=== PATIENT | male | born 1990 | race Caucasian/White ===

== ENCOUNTER 2024-09-21 14:02 | Emergency (ER) | payer OTHER ==
[~2024-09-21] VITALS: Ht 175.3 cm; Wt 65.8 kg
[2024-09-21 14:33] VITALS: BP 125/71
== END 2024-09-21 19:10 | disposition home or self-care (01) ==
LOC: ER 14:02
DX: S61.215A Laceration without foreign body of left ring finger without damage to nail, initial encounter (principal); W23.0XXA Caught, crushed, jammed, or pinched between moving objects, initial encounter; Z23 Encounter for immunization
CPT/HCPCS: 12002; 73140; 90471; 90715; 99282-25